=== PATIENT | male | born 1940 | race Asian ===

== ENCOUNTER 2020-05-12 18:42 | Inpatient (IN) | payer MEDICARE, MEDICAID ==
[~2020-05-12] VITALS: Ht 170.2 cm; Wt 62.0 kg
[2020-05-12 20:36] LABS: Basophils # (auto) 0.1 10 ^3/uL (0-0.2); Hemoglobin 13.2 g/dL (13.5-17.5); Mean Corpuscular Hemoglobin 34.9 pg (28.0-32.0); Monocytes # (auto) 0.4 10 ^3/uL (0-1.3); Neutrophils # (auto) 4.1 10 ^3/uL (1.6-8.6); Nucleated Red Blood Cells % 0.1 %; Platelet Count (auto) 202 10^3/uL (140-450); Red Blood Cells 3.77 10^6/uL (4.5-5.90); White Blood Cell 6.9 10^3/uL (4.4-10.8)
[2020-05-12 20:39] LABS: Basophils % (auto) 0.8 % (0.0-2.0); Eosinophils # (auto) 0.2 10 ^3/uL (0-0.8); Eosinophils % (auto) 3.3 % (0.0-7.0); Hematocrit 37.4 % (41.0-53.0); Lymphocytes # (auto) 2.1 10 ^3/uL (0.4-5.4); Lymphocytes % (auto) 30.4 % (10.0-50.0); Mean Corpuscular Hgb Conc. 35.2 g/dL (32.0-36.0); Mean Corpuscular Volume 99.1 fL (80.0-100.0); Neutrophils % (auto) 59.5 % (37.0-80.0); Red Cell Distribution Width 14.9 % (11.8-14.3)
[2020-05-12 20:48] LABS: Albumin 3.8 g/dL (3.4-5.0); Anion Gap 15 (5-15); Blood Urea Nitrogen 29 mg/dL (7-18); Calcium 9.1 mg/dL (8.5-10.1); Carbon Dioxide 21 mmol/L (21-32); Chloride 101 mmol/L (98-107); GFR African American 54 mL/min; GFR Non-African American 44 mL/min; Glucose 104 mg/dL (74-106); Potassium 4.6 mmol/L (3.5-5.1); Sodium 137 mmol/L (136-145)
[2020-05-12 20:53] LABS: Alanine Aminotransferase 22 U/L (16-61); Alkaline Phosphatase 70 U/L (45-117); Aspartate Aminotransferase 22 U/L (15-37); Total Protein 8.2 g/dL (6.4-8.2)
[2020-05-12 21:02] LABS: INR 0.98 (0.9-1.15)
[2020-05-12] MEDS ORDERED: DOXYCYCLINE 100MG/250ML 250 ML IV ONE (23:15)
[2020-05-12] MEDS ORDERED: DexAMETHasone SOD PHOS 10MG/1ML VIAL INJ IV ONE (23:15)
[2020-05-13] MEDS ORDERED: TEMAZEPAM 15 MG CAP PO PRN (00:45)
[2020-05-13] MEDS ORDERED: cloNIDine HCL 0.1 MG TAB PO PRN (00:45)
[2020-05-13] MEDS ORDERED: ONDANSETRON HCL 4 MG/2 ML VIAL IV PRN (00:45)
[2020-05-13] MEDS ORDERED: ACETAMINOPHEN 325 MG TAB PO PRN (00:45)
[2020-05-13 01:58] LABS: Urine Bacteria NONE SEEN /hpf (None Seen); Urine Blood Negative /uL (Negative); Urine Mucus FEW (None Seen); Urine Specific Gravity 1.007 (1.001-1.035); Urine WBC <1 /hpf (0 - 3)
[2020-05-13 02:55] VITALS: BP 159/99
[2020-05-13 03:24] VITALS: BP 159/99
[2020-05-13] MEDS ORDERED: KRIL300C2 PO ×2 (04:08→04:14)
[2020-05-13] MEDS ORDERED: MULTCHW3 OR ×2 (04:08→04:15)
[2020-05-13] MEDS ORDERED: UMEC1AER IN ×3 (04:08→04:13)
[2020-05-13] MEDS ORDERED: RANO500T2 PO (04:08)
[2020-05-13] MEDS ORDERED: [UNRECOGNIZED DRUG - CODE] PO (04:08)
[2020-05-13] MEDS ORDERED: KETO2CRE4 TOP (04:08)
[2020-05-13] MEDS ORDERED: TERA5CAP42 PO (04:08)
[2020-05-13] MEDS ORDERED: ALLO300T2 PO (04:08)
[2020-05-13] MEDS ORDERED: MOME200A INH ×2 (04:08→04:17)
[2020-05-13] MEDS ORDERED: ISO60SRT PO (04:08)
[2020-05-13] MEDS ORDERED: LOSA-69 PO (04:08)
[2020-05-13] MEDS ORDERED: ASPI325T4 PO (04:08)
[2020-05-13] MEDS ORDERED: METO25TA93 PO (04:08)
[2020-05-13] MEDS ORDERED: FLUO0.05 EX (04:08)
[2020-05-13] MEDS ORDERED: OMEG306C OR ×2 (04:08→04:15)
[2020-05-13] MEDS ORDERED: CHOL20007 PO (04:08)
[2020-05-13] MEDS ORDERED: ATOR40TA52 PO (04:08)
[2020-05-13 05:00] VITALS: BP 136/73
[2020-05-13 08:45] VITALS: BP 145/86
[2020-05-13] MEDS ORDERED: PANTOPRAZOLE 40 MG TAB PO SCH (10:00)
[2020-05-13] MEDS ORDERED: amLODIPine BESYLATE 5 MG TAB PO SCH (10:00)
[2020-05-13] MEDS ORDERED: DOXYCYCLINE 100MG/250ML 250 ML IV SCH (10:00)
[2020-05-13 12:46] LABS: Basophils # (auto) 0 10 ^3/uL (0-0.2); Basophils % (auto) 0.5 % (0.0-2.0); Eosinophils # (auto) 0 10 ^3/uL (0-0.8); Eosinophils % (auto) 0.1 % (0.0-7.0); Hemoglobin 12.2 g/dL (13.5-17.5); Lymphocytes # (auto) 1.2 10 ^3/uL (0.4-5.4); Lymphocytes % (auto) 20.9 % (10.0-50.0); Mean Corpuscular Hemoglobin 33.9 pg (28.0-32.0); Mean Corpuscular Hgb Conc. 34.7 g/dL (32.0-36.0); Mean Corpuscular Volume 97.7 fL (80.0-100.0); Monocytes # (auto) 0.1 10 ^3/uL (0-1.3); Monocytes % (auto) 0.9 % (0.0-12.0); Neutrophils # (auto) 4.5 10 ^3/uL (1.6-8.6); Neutrophils % (auto) 77.6 % (37.0-80.0); Nucleated Red Blood Cells % 0.5 %; Platelet Count (auto) 183 10^3/uL (140-450); Red Blood Cells 3.59 10^6/uL (4.5-5.90); Red Cell Distribution Width 14.8 % (11.8-14.3); White Blood Cell 5.8 10^3/uL (4.4-10.8)
[2020-05-13 13:00] VITALS: BP 128/78
[2020-05-13 13:22] LABS: BUN/Creatinine Ratio 19.1; Calcium 9.6 mg/dL (8.5-10.1); Potassium 4.6 mmol/L (3.5-5.1)
[2020-05-13 16:07] LABS: Folate (Folic Acid) > 24.00 ng/mL (5.38-24)
== END 2020-05-13 16:53 | disposition home health service (06) | DRG 640 ==
LOC: ER 18:42 → OVERFLOW 18:43 → EAST 05-13 02:32
PROVIDERS: ADMIT Nurse Practitioner; ATTEND Internal Medicine
DX: E86.0 Dehydration (principal); N17.0 Acute kidney failure with tubular necrosis; I16.1 Hypertensive emergency; Z20.822 Contact with and (suspected) exposure to COVID-19; E04.1 Nontoxic single thyroid nodule; E11.22 Type 2 diabetes mellitus with diabetic chronic kidney disease; I12.9 Hypertensive chronic kidney disease with stage 1 through stage 4 chronic kidney disease, or unspecified chronic kidney disease; K52.9 Noninfective gastroenteritis and colitis, unspecified; K57.30 Diverticulosis of large intestine without perforation or abscess without bleeding; N18.31 Chronic kidney disease, stage 3a; N28.1 Cyst of kidney, acquired; M19.90 Unspecified osteoarthritis, unspecified site; R79.89 Other specified abnormal findings of blood chemistry; Z86.73 Personal history of transient ischemic attack (TIA), and cerebral infarction without residual deficits
CPT/HCPCS: 36415; 70450; 71045; 72125; 74176; 76705; 80048; 80053; 81001; 82010; 82607; 82728; 82746; 82962; 83605; 83880; 84443; 84484; 85025; 85379; 85610; 85730; 87040; 87426; 93005; 93970; 96365; 96375; G0378; J1100; J3490

== ENCOUNTER 2020-07-07 05:19 | Inpatient (IN) | payer MEDICARE, MEDICAID ==
[~2020-07-07] VITALS: Ht 170.2 cm; Wt 62.4 kg
[~2020-07-07 05:19] MED LIST: ALLO300T2 PO; ASPI325T4 PO; ATOR40TA52 PO; CHOL20007 PO; FLUO0.05 EX; ISO60SRT PO; KETO2CRE4 TOP; KRIL300C2 PO; LOSA-69 PO; METO25TA93 PO; MOME200A INH; MULTCHW3 OR; OMEG306C OR; RANO500T2 PO; TERA5CAP42 PO; UMEC1AER IN; [UNRECOGNIZED DRUG - CODE] PO
[2020-07-07 06:41] LABS: Basophils # (auto) 0 10 ^3/uL (0-0.2); Eosinophils # (auto) 0 10 ^3/uL (0-0.8); Hemoglobin 11.4 g/dL (13.5-17.5); Lymphocytes # (auto) 0.5 10 ^3/uL (0.4-5.4); Mean Corpuscular Volume 98.8 fL (80.0-100.0); Monocytes # (auto) 0.4 10 ^3/uL (0-1.3)
[2020-07-07 06:43] LABS: Basophils % (auto) 0.2 % (0.0-2.0); Hematocrit 32.8 % (41.0-53.0); Lymphocytes % (auto) 6.1 % (10.0-50.0); Mean Corpuscular Hemoglobin 34.3 pg (28.0-32.0); Mean Corpuscular Hgb Conc. 34.7 g/dL (32.0-36.0); Monocytes % (auto) 5.4 % (0.0-12.0); Neutrophils # (auto) 6.6 10 ^3/uL (1.6-8.6); Neutrophils % (auto) 88.3 % (37.0-80.0); Nucleated Red Blood Cells % 0.1 %; Red Blood Cells 3.32 10^6/uL (4.5-5.90); Red Cell Distribution Width 14.9 % (11.8-14.3); White Blood Cell 7.5 10^3/uL (4.4-10.8)
[2020-07-07] MEDS ORDERED: SODIUM CHLORIDE 0.9% 1,000 ML IV ONE (07:00)
[2020-07-07 07:06] LABS: Albumin 3.2 g/dL (3.4-5.0); Anion Gap 9 (5-15); Blood Urea Nitrogen 21 mg/dL (7-18); Calcium 9.5 mg/dL (8.5-10.1); Carbon Dioxide 22 mmol/L (21-32); Chloride 106 mmol/L (98-107); Glucose 125 mg/dL (74-106); Magnesium 1.7 mg/dL (1.6-2.6); Potassium 3.9 mmol/L (3.5-5.1); Sodium 137 mmol/L (136-145)
[2020-07-07 07:13] LABS: Alanine Aminotransferase 23 U/L (16-61); Alkaline Phosphatase 78 U/L (45-117); Aspartate Aminotransferase 23 U/L (15-37); BUN/Creatinine Ratio 16.9; Bilirubin, Total 0.9 mg/dL (0.2-1.0); GFR African American 73 mL/min; GFR Non-African American 60 mL/min; Total Protein 6.7 g/dL (6.4-8.2)
[2020-07-07] MEDS ORDERED: FUROSEMIDE 20 MG/2 ML VIAL IV ONE (07:45)
[2020-07-07 09:57] LABS: Urine Bacteria NONE SEEN /hpf (None Seen); Urine Blood Negative /uL (Negative); Urine Specific Gravity 1.006 (1.001-1.035); Urine WBC <1 /hpf (0 - 3)
[2020-07-07] MEDS ORDERED: ACETAMINOPHEN 500 MG TAB PO PRN (10:00)
[2020-07-07] MEDS ORDERED: PATIENTS OWN MEDICATION (Atorvastatin Calcium 1 TAB) PO SCH (10:00)
[2020-07-07] MEDS ORDERED: MORPHINE SULFATE INJECTION 2 MG/ML SYRG IV PRN (10:00)
[2020-07-07] MEDS ORDERED: NITROGLYCERIN 0.4 MG SL TAB SL PRN (10:00)
[2020-07-07] MEDS ORDERED: ONDANSETRON HCL 4 MG/2 ML VIAL IV PRN (10:00)
[2020-07-07] MEDS ORDERED: ALLOPURINOL 300 MG TAB PO SCH (10:00)
[2020-07-07] MEDS ORDERED: PATIENTS OWN MEDICATION (Metoprolol Succinate (Metoprolol Succinate Er) 1 TAB) PO SCH (10:00)
[2020-07-07] MEDS: LOSARTAN POTASSIUM 50 MG TAB PO SCH (10:20)
[2020-07-07] MEDS: ISOSORBIDE MONONITRATE ER 60 MG TAB PO SCH (10:21)
[2020-07-07] MEDS: FAMOTIDINE 20 MG TAB PO SCH (10:21)
[2020-07-07] MEDS: RANOLAZINE ER 500 MG TAB PO SCH (10:21)
[2020-07-07] MEDS: METOPROLOL SUCCINATE XL 50 MG TAB PO SCH (10:22)
[2020-07-07 17:00] VITALS: BP 133/80
[2020-07-07 20:00] VITALS: BP 102/60
[2020-07-07 22:00] VITALS: BP 94/56
[2020-07-07] MEDS: TERAZOSIN HCL 5 MG CAP PO SCH (22:00)
[2020-07-07] MEDS: ATORVASTATIN 20 MG TAB PO SCH (22:00)
[2020-07-08 05:00] VITALS: BP 95/64
[2020-07-08 08:30] VITALS: BP 134/72
[2020-07-08] MEDS: FAMOTIDINE 20 MG TAB PO SCH (10:19)
[2020-07-08] MEDS: ISOSORBIDE MONONITRATE ER 60 MG TAB PO SCH (10:19)
[2020-07-08] MEDS: LOSARTAN POTASSIUM 50 MG TAB PO SCH (10:19)
[2020-07-08] MEDS: RANOLAZINE ER 500 MG TAB PO SCH (10:19)
[2020-07-08] MEDS: ALLOPURINOL 100 MG TAB PO SCH (10:20)
[2020-07-08] MEDS: METOPROLOL SUCCINATE XL 50 MG TAB PO SCH (10:20)
[2020-07-08 13:00] VITALS: BP 100/58
[2020-07-08] MEDS: HYDROcodone-ACET 5/325MG TAB PO PRN ×2 (15:01→21:30)
[2020-07-08 17:00] VITALS: BP 95/50
[2020-07-08 20:00] VITALS: BP 108/51
[2020-07-08 22:00] VITALS: BP 92/59
[2020-07-08] MEDS: TERAZOSIN HCL 5 MG CAP PO SCH (22:00)
[2020-07-08] MEDS: ATORVASTATIN 20 MG TAB PO SCH (22:00)
[2020-07-09 05:00] VITALS: BP 95/56
[2020-07-09 07:06] LABS: Cholesterol 162 mg/dL (< 200); HDL Cholesterol 45 mg/dL (40-59); LDL Cholesterol 96 mg/dL (< 100); Triglycerides 178 mg/dL (< 150)
[2020-07-09 07:10] LABS: Folate (Folic Acid) 20.97 ng/mL (5.38-24)
[2020-07-09] MEDS ORDERED: ADENOSINE 53 MG in GIVE UN-DILUTED 0 ML IV STA (08:21)
[2020-07-09 09:00] VITALS: BP 115/70
[2020-07-09] MEDS ORDERED: SODIUM CHLORIDE 0.9% 1,000 ML IV SCH (09:30)
[2020-07-09] MEDS: METOPROLOL SUCCINATE XL 50 MG TAB PO SCH (10:00)
[2020-07-09 10:37] LABS: Calcium 8.7 mg/dL (8.5-10.1); Potassium 3.1 mmol/L (3.5-5.1)
[2020-07-09 10:40] LABS: BUN/Creatinine Ratio 21.4
[2020-07-09 10:46] LABS: Basophils # (auto) 0 10 ^3/uL (0-0.2); Eosinophils # (auto) 0.3 10 ^3/uL (0-0.8); Eosinophils % (auto) 6.2 % (0.0-7.0); Hematocrit 28.9 % (41.0-53.0); Hemoglobin 10.5 g/dL (13.5-17.5); Lymphocytes # (auto) 1.6 10 ^3/uL (0.4-5.4); Lymphocytes % (auto) 33.3 % (10.0-50.0); Mean Corpuscular Hemoglobin 35.1 pg (28.0-32.0); Mean Corpuscular Hgb Conc. 36.1 g/dL (32.0-36.0); Mean Corpuscular Volume 97.1 fL (80.0-100.0); Monocytes # (auto) 0.6 10 ^3/uL (0-1.3); Monocytes % (auto) 13.2 % (0.0-12.0); Neutrophils # (auto) 2.2 10 ^3/uL (1.6-8.6); Neutrophils % (auto) 46.3 % (37.0-80.0); Nucleated Red Blood Cells % 0.2 %; Red Blood Cells 2.98 10^6/uL (4.5-5.90); Red Cell Distribution Width 14.3 % (11.8-14.3); White Blood Cell 4.7 10^3/uL (4.4-10.8)
[2020-07-09] MEDS: ALLOPURINOL 100 MG TAB PO SCH (11:08)
[2020-07-09] MEDS: FAMOTIDINE 20 MG TAB PO SCH (11:09)
[2020-07-09] MEDS: RANOLAZINE ER 500 MG TAB PO SCH (11:16)
[2020-07-09] MEDS: SODIUM CHLORIDE 0.9% 1,000 ML IV SCH ×2 (11:36→23:05)
[2020-07-09] MEDS ORDERED: cefTRIAXone 1GM/50ML D5W 50 ML IV ONE (12:30)
[2020-07-09] MEDS ORDERED: POTASSIUM EFFERVESENT TAB 25 MEQ PO ONE (12:30)
[2020-07-09 12:55] VITALS: BP_SYST 77; BP_SYST 82; BP_DIAS 48
[2020-07-09 13:07] VITALS: BP 93/60
[2020-07-09] MEDS ORDERED: DEXTROSE (50%) 50ML SYRG IV PRN (13:15)
[2020-07-09] MEDS: InsuLIN REG 1unit/0.01ml Soln (100units/ml) SC SCH ×2 (17:00→23:04)
[2020-07-09] MEDS: ACCU-CHEK COMFORT CURVE STRIP VI SCH ×2 (17:56→23:02)
[2020-07-09 22:00] VITALS: BP 140/81
[2020-07-09] MEDS: ATORVASTATIN 20 MG TAB PO SCH (23:02)
[2020-07-09] MEDS: TERAZOSIN HCL 5 MG CAP PO SCH (23:02)
[2020-07-10 05:00] VITALS: BP 144/83
[2020-07-10 06:01] LABS: Potassium 3.8 mmol/L (3.5-5.1)
[2020-07-10] MEDS: ACCU-CHEK COMFORT CURVE STRIP VI SCH ×4 (06:05→22:00)
[2020-07-10] MEDS: InsuLIN REG 1unit/0.01ml Soln (100units/ml) SC SCH ×4 (06:06→22:36)
[2020-07-10 06:07] LABS: BUN/Creatinine Ratio 15.8; Calcium 8.5 mg/dL (8.5-10.1)
[2020-07-10 08:37] VITALS: BP 121/70
[2020-07-10] MEDS: ASPirin-EC 81 mg tab PO SCH ×2 (10:00→11:32)
[2020-07-10] MEDS: cefTRIAXone 1GM/50ML D5W 50 ML IV SCH (11:31)
[2020-07-10] MEDS: FAMOTIDINE 20 MG TAB PO SCH (11:32)
[2020-07-10] MEDS: METOPROLOL SUCCINATE XL 50 MG TAB PO SCH (11:32)
[2020-07-10 13:00] VITALS: BP 146/81
[2020-07-10 17:00] VITALS: BP 147/82
[2020-07-10 22:00] VITALS: BP 145/85
[2020-07-10] MEDS ORDERED: TEMAZEPAM 15 MG CAP PO PRN (22:00)
[2020-07-10] MEDS: TERAZOSIN HCL 5 MG CAP PO SCH (22:36)
[2020-07-10] MEDS: traZODone HCL 50 MG TAB PO PRN (22:37)
[2020-07-10] MEDS: ATORVASTATIN 20 MG TAB PO SCH (22:37)
[2020-07-11 05:16] VITALS: BP 141/72
[2020-07-11] MEDS: InsuLIN REG 1unit/0.01ml Soln (100units/ml) SC SCH ×4 (07:00→22:00)
[2020-07-11] MEDS: ACCU-CHEK COMFORT CURVE STRIP VI SCH ×4 (07:16→22:11)
[2020-07-11 09:00] VITALS: BP 145/73
[2020-07-11] MEDS: cefTRIAXone 1GM/50ML D5W 50 ML IV SCH (10:10)
[2020-07-11] MEDS: ASPirin-EC 81 mg tab PO SCH (10:11)
[2020-07-11] MEDS: FAMOTIDINE 20 MG TAB PO SCH (10:11)
[2020-07-11] MEDS: METOPROLOL SUCCINATE XL 50 MG TAB PO SCH (10:12)
[2020-07-11 13:00] VITALS: BP 127/74
[2020-07-11 16:45] VITALS: BP 142/74
[2020-07-11] MEDS: HYDROcodone-ACET 5/325MG TAB PO PRN (19:25)
[2020-07-11] MEDS: ATORVASTATIN 20 MG TAB PO SCH (21:58)
[2020-07-11] MEDS: TERAZOSIN HCL 5 MG CAP PO SCH (21:58)
[2020-07-11] MEDS: traZODone HCL 50 MG TAB PO PRN (21:59)
[2020-07-11 22:00] VITALS: BP 136/71
[2020-07-12 05:00] VITALS: BP 116/58
[2020-07-12] MEDS: InsuLIN REG 1unit/0.01ml Soln (100units/ml) SC SCH ×4 (06:00→22:04)
[2020-07-12] MEDS: ACCU-CHEK COMFORT CURVE STRIP VI SCH ×4 (06:00→21:25)
[2020-07-12] MEDS: cefTRIAXone 1GM/50ML D5W 50 ML IV SCH (08:56)
[2020-07-12 09:00] VITALS: BP 119/71
[2020-07-12] MEDS: ASPirin-EC 81 mg tab PO SCH (09:02)
[2020-07-12] MEDS: FAMOTIDINE 20 MG TAB PO SCH (09:02)
[2020-07-12] MEDS: METOPROLOL SUCCINATE XL 50 MG TAB PO SCH (09:03)
[2020-07-12 13:00] VITALS: BP 152/79
[2020-07-12 17:00] VITALS: BP 136/72
[2020-07-12] MEDS: TERAZOSIN HCL 5 MG CAP PO SCH (21:25)
[2020-07-12] MEDS: ATORVASTATIN 20 MG TAB PO SCH (21:25)
[2020-07-12 22:11] VITALS: BP 138/64
[2020-07-13 04:52] VITALS: BP 149/70
[2020-07-13 06:00] LABS: Basophils # (auto) 0.1 10 ^3/uL (0-0.2); Eosinophils # (auto) 0.3 10 ^3/uL (0-0.8); Hemoglobin 10.8 g/dL (13.5-17.5); Lymphocytes # (auto) 2.5 10 ^3/uL (0.4-5.4); Mean Corpuscular Hemoglobin 34.9 pg (28.0-32.0); Monocytes # (auto) 0.6 10 ^3/uL (0-1.3); Neutrophils # (auto) 3.6 10 ^3/uL (1.6-8.6); Nucleated Red Blood Cells % 0.1 %
[2020-07-13 06:03] LABS: Eosinophils % (auto) 4.2 % (0.0-7.0); Lymphocytes % (auto) 35.9 % (10.0-50.0); Mean Corpuscular Hgb Conc. 36.1 g/dL (32.0-36.0); Mean Corpuscular Volume 96.6 fL (80.0-100.0); Monocytes % (auto) 8.5 % (0.0-12.0); Neutrophils % (auto) 50.4 % (37.0-80.0); Red Blood Cells 3.11 10^6/uL (4.5-5.90); Red Cell Distribution Width 14.1 % (11.8-14.3)
[2020-07-13 06:16] LABS: Potassium 3.8 mmol/L (3.5-5.1)
[2020-07-13 06:19] LABS: INR 1.03 (0.9-1.15); Partial Thromboplastin Time 29.3 sec (23.0-31.2)
[2020-07-13 06:23] LABS: Calcium 8.3 mg/dL (8.5-10.1)
[2020-07-13] MEDS: ACCU-CHEK COMFORT CURVE STRIP VI SCH ×4 (06:31→22:00)
[2020-07-13] MEDS: InsuLIN REG 1unit/0.01ml Soln (100units/ml) SC SCH ×4 (06:31→22:00)
[2020-07-13 09:00] VITALS: BP 133/73
[2020-07-13] MEDS: FAMOTIDINE 20 MG TAB PO SCH (10:00)
[2020-07-13] MEDS: ASPirin-EC 81 mg tab PO SCH (10:20)
[2020-07-13] MEDS: METOPROLOL SUCCINATE XL 50 MG TAB PO SCH (10:20)
[2020-07-13] MEDS ORDERED: MIDAZOLAM HCL 2MG/2ML 2ml VIAL (1mg/ml) IV ONE (12:30)
[2020-07-13] MEDS ORDERED: diphenhdrAMINE HCL 50 MG/1 ML VL IV ONE (12:30)
[2020-07-13] MEDS ORDERED: fentaNYL CITRATE 100 MCG/2 ML VL IV ONE (12:30)
[2020-07-13 12:44] VITALS: BP 127/68
[2020-07-13 17:00] VITALS: BP 134/78
[2020-07-13 20:00] VITALS: BP 133/73
[2020-07-13 22:00] VITALS: BP 120/64
[2020-07-13] MEDS: ATORVASTATIN 20 MG TAB PO SCH (23:48)
[2020-07-13] MEDS: TERAZOSIN HCL 5 MG CAP PO SCH (23:48)
[2020-07-14] MEDS: traZODone HCL 50 MG TAB PO PRN (00:23)
[2020-07-14 05:00] VITALS: BP 131/66
[2020-07-14] MEDS: ACCU-CHEK COMFORT CURVE STRIP VI SCH ×2 (06:22→11:57)
[2020-07-14] MEDS: InsuLIN REG 1unit/0.01ml Soln (100units/ml) SC SCH ×2 (06:23→11:58)
[2020-07-14 07:24] LABS: Hematocrit 30.2 % (41.0-53.0)
[2020-07-14 07:26] LABS: Hemoglobin 10.6 g/dL (13.5-17.5)
[2020-07-14 08:42] VITALS: BP 138/72
[2020-07-14] MEDS: ASPirin-EC 81 mg tab PO SCH (10:23)
[2020-07-14] MEDS: FAMOTIDINE 20 MG TAB PO SCH (10:23)
[2020-07-14] MEDS: METOPROLOL SUCCINATE XL 50 MG TAB PO SCH (10:24)
[2020-07-14] MEDS ORDERED: ISOS1TAB28 PO (11:48)
[2020-07-14 12:39] VITALS: BP 110/70
== END 2020-07-14 14:25 | disposition home health service (06) | DRG 312 ==
LOC: ER 05:19 → EDBD 05:19 → OVERFLOW 09:56 → EAST 16:37 → TELE-EAST 07-08 07:04
PROVIDERS: ADMIT Nurse Practitioner Acute Care; ATTEND Internal Medicine
PROC: 4A02XM4 Measurement of Cardiac Total Activity, External Approach (ICD-10-PCS; 2020-07-10)
PROC: B24BZZ4 Ultrasonography of Heart with Aorta, Transesophageal (ICD-10-PCS; principal; 2020-07-13)
DX: I95.2 Hypotension due to drugs (principal); E16.2 Hypoglycemia, unspecified; I25.10 Atherosclerotic heart disease of native coronary artery without angina pectoris; I10 Essential (primary) hypertension; D64.9 Anemia, unspecified; E78.5 Hyperlipidemia, unspecified; Z20.822 Contact with and (suspected) exposure to COVID-19; E86.0 Dehydration; F17.200 Nicotine dependence, unspecified, uncomplicated; F51.04 Psychophysiologic insomnia; R32 Unspecified urinary incontinence; G30.9 Alzheimer's disease, unspecified; F02.80 Dementia in other diseases classified elsewhere, unspecified severity, without behavioral disturbance, psychotic disturbance, mood disturbance, and anxiety; N40.0 Benign prostatic hyperplasia without lower urinary tract symptoms; E11.9 Type 2 diabetes mellitus without complications; J44.9 Chronic obstructive pulmonary disease, unspecified; Z90.49 Acquired absence of other specified parts of digestive tract; Z79.899 Other long term (current) drug therapy; Z86.73 Personal history of transient ischemic attack (TIA), and cerebral infarction without residual deficits; Z95.5 Presence of coronary angioplasty implant and graft
CPT/HCPCS: 36415; 70450; 70551; 71045; 78452; 80048; 80053; 80061; 81001; 82306; 82607; 82746; 82962; 83036; 83735; 83880; 84439; 84443; 84484; 84550; 85014; 85018; 85025; 85610; 85730; 86850; 86900; 86901; 87040; 87081; 87086; 87426; 93005; 93017; 93306; 93886; 95819; 96361; 96374; 97110; 97116; 97530; 99152; G0378; J0153; J0696; J1815; J2250

== ENCOUNTER → 2020-10-01 | Outpatient (CLI) | payer MEDICARE, MEDICAID ==
[~2020-10-01] MED LIST changes: -ISO60SRT PO; +ISOS1TAB28 PO; -LOSA-69 PO; -[UNRECOGNIZED DRUG - CODE] PO
[2020-10-01 11:02] LABS: Urine Bacteria NONE SEEN /hpf (None Seen); Urine Blood Negative /uL (Negative); Urine Specific Gravity 1.017 (1.001-1.035); Urine WBC <1 /hpf (0 - 3)
[2020-10-01 11:17] LABS: BUN/Creatinine Ratio 19.1; Calcium 8.6 mg/dL (8.5-10.1); Potassium 4.5 mmol/L (3.5-5.1)
== END | disposition home or self-care (01) ==
LOC: LAB 10:38
PROVIDERS: ATTEND Urology
DX: N40.0 Benign prostatic hyperplasia without lower urinary tract symptoms (principal); N35.919 Unspecified urethral stricture, male, unspecified site
CPT/HCPCS: 36415; 80048; 81001; 84153; 87086

== ENCOUNTER → 2021-08-05 | Outpatient (CLI) | payer OTHER, MEDICAID ==
[2021-08-05 15:35] LABS: Urine Bacteria NONE SEEN /hpf (None Seen); Urine Blood Negative /uL (Negative); Urine Mucus FEW (None Seen); Urine Specific Gravity 1.018 (1.001-1.035); Urine WBC <1 /hpf (0 - 3)
== END | disposition home or self-care (01) ==
LOC: LAB 15:10
PROVIDERS: ATTEND Urology
DX: N39.0 Urinary tract infection, site not specified (principal)
CPT/HCPCS: 81001; 87086

== ENCOUNTER → 2021-08-26 | Day surgery (SDC) | payer MEDICARE, MEDICAID ==
[2021-08-24 14:10] LABS: Basophils # (auto) 0 10 ^3/uL (0-0.2); Basophils % (auto) 0.8 % (0.0-2.0); Eosinophils # (auto) 0.1 10 ^3/uL (0-0.8); Eosinophils % (auto) 1.9 % (0.0-7.0); Hematocrit 31.4 % (41.0-53.0); Hemoglobin 10.5 g/dL (13.5-17.5); Lymphocytes # (auto) 1.7 10 ^3/uL (0.4-5.4); Lymphocytes % (auto) 34.8 % (10.0-50.0); Mean Corpuscular Hemoglobin 32.8 pg (28.0-32.0); Mean Corpuscular Hgb Conc. 33.5 g/dL (32.0-36.0); Mean Corpuscular Volume 97.9 fL (80.0-100.0); Monocytes # (auto) 0.4 10 ^3/uL (0-1.3); Monocytes % (auto) 7.3 % (0.0-12.0); Neutrophils # (auto) 2.7 10 ^3/uL (1.6-8.6); Neutrophils % (auto) 55.2 % (37.0-80.0); Nucleated Red Blood Cells % 0.1 %; Red Blood Cells 3.21 10^6/uL (4.5-5.90); Red Cell Distribution Width 15.2 % (11.8-14.3); White Blood Cell 4.9 10^3/uL (4.4-10.8)
[2021-08-24 14:22] LABS: INR 1.04 (0.9-1.15); Partial Thromboplastin Time 27.3 sec (23.6-33.0)
[2021-08-24 15:25] LABS: Albumin 3.2 g/dL (3.4-5.0); Calcium 8.6 mg/dL (8.5-10.1); Potassium 3.9 mmol/L (3.5-5.1)
[2021-08-24 15:31] LABS: BUN/Creatinine Ratio 15.2; Bilirubin, Total 0.9 mg/dL (0.2-1.0); Total Protein 6.9 g/dL (6.4-8.2)
[~2021-08-26] VITALS: Ht 170.2 cm; Wt 63.5 kg
[~2021-08-26] MED LIST changes: +DONE1TAB88 PO; +LOSA-69 PO; +METF-372 PO; +diphenhdrAMINE HCL 50 MG/1 ML VL ONE
[2021-08-26] MEDS: fentaNYL CITRATE 100 MCG/2 ML VL ONE ×2 (09:44→09:48)
[2021-08-26] MEDS: MIDAZOLAM HCL 5 MG/ML-1ML VIAL ONE ×2 (09:44→09:48)
[2021-08-26 10:20] VITALS: BP 160/82
== END | disposition home or self-care (01) ==
LOC: GI 08:28
PROVIDERS: ATTEND Internal Medicine Gastroenterology
DX: R19.7 Diarrhea, unspecified (principal); K57.30 Diverticulosis of large intestine without perforation or abscess without bleeding; K64.8 Other hemorrhoids; K63.89 Other specified diseases of intestine; I10 Essential (primary) hypertension; E11.9 Type 2 diabetes mellitus without complications; E11.40 Type 2 diabetes mellitus with diabetic neuropathy, unspecified; G47.00 Insomnia, unspecified; M10.9 Gout, unspecified; I20.9 Angina pectoris, unspecified; J44.9 Chronic obstructive pulmonary disease, unspecified; Z98.890 Other specified postprocedural states; Z79.899 Other long term (current) drug therapy; Z95.5 Presence of coronary angioplasty implant and graft; Z20.822 Contact with and (suspected) exposure to COVID-19
CPT/HCPCS: 36415; 45380; 80053; 85025; 85610; 85730; 88305; J1200; J2250; J3010; J7030; U0003; G0500

== ENCOUNTER 2021-09-30 06:08 | Observation (INO) | payer MEDICARE, MEDICAID ==
[2021-09-28 12:30] LABS: Basophils # (auto) 0.1 10 ^3/uL (0-0.2); Basophils % (auto) 1.1 % (0.0-2.0); Eosinophils # (auto) 0.2 10 ^3/uL (0-0.8); Eosinophils % (auto) 3.2 % (0.0-7.0); Hematocrit 34.2 % (41.0-53.0); Hemoglobin 11.3 g/dL (13.5-17.5); Lymphocytes # (auto) 2.4 10 ^3/uL (0.4-5.4); Lymphocytes % (auto) 36.5 % (10.0-50.0); Mean Corpuscular Hemoglobin 32.5 pg (28.0-32.0); Mean Corpuscular Hgb Conc. 33.1 g/dL (32.0-36.0); Mean Corpuscular Volume 98.2 fL (80.0-100.0); Monocytes # (auto) 0.5 10 ^3/uL (0-1.3); Monocytes % (auto) 7.2 % (0.0-12.0); Neutrophils # (auto) 3.4 10 ^3/uL (1.6-8.6); Red Blood Cells 3.48 10^6/uL (4.5-5.90); Red Cell Distribution Width 15.3 % (11.8-14.3); White Blood Cell 6.6 10^3/uL (4.4-10.8)
[2021-09-28 12:39] LABS: Urine Bacteria NONE SEEN /hpf (None Seen); Urine Blood Negative /uL (Negative); Urine Specific Gravity 1.021 (1.001-1.035); Urine WBC <1 /hpf (0 - 3)
[2021-09-28 12:42] LABS: INR 0.97 (0.9-1.15)
[2021-09-28 12:55] LABS: Albumin 3.5 g/dL (3.4-5.0); Calcium 9.4 mg/dL (8.5-10.1)
[2021-09-28 12:59] LABS: BUN/Creatinine Ratio 18.8
[~2021-09-30] VITALS: Ht 170.2 cm; Wt 60.0 kg
[~2021-09-30 06:08] MED LIST changes: -diphenhdrAMINE HCL 50 MG/1 ML VL ONE
[2021-09-30] MEDS ORDERED: IOHEXOL 300 MG/ML 100ML BOTTLE IJ ONE (06:29)
[2021-09-30] MEDS ORDERED: SUCCINYLCHOLINE CHLORIDE 20 MG/ML 10ML VIAL IV ONE (06:55)
[2021-09-30] MEDS ORDERED: BUPIVACAINE 0.5% P/F INJ 10 ML VIAL ONE (06:55)
[2021-09-30] MEDS ORDERED: DexAMETHasone SOD PHOS 10MG/1ML VIAL INJ ONE (07:00)
[2021-09-30] MEDS ORDERED: ONDANSETRON HCL 4 MG/2 ML VIAL ONE (07:00)
[2021-09-30] MEDS ORDERED: PROPOFOL 10 MG/ML 20 ML IV ONE (07:00)
[2021-09-30] MEDS ORDERED: SODIUM CHLORIDE LOCK 10 ML ONE (07:00)
[2021-09-30] MEDS ORDERED: fentaNYL CITRATE 100 MCG/2 ML VL ONE (07:00)
[2021-09-30] MEDS ORDERED: MIDAZOLAM HCL 2MG/2ML 2ml VIAL (1mg/ml) ONE (07:00)
[2021-09-30] MEDS ORDERED: MORPHINE SULFATE 4 MG/ML SYR/VIAL IV PRN (07:15)
[2021-09-30] MEDS ORDERED: HYDROmorphone HCL 2 MG/ML VL/or syr IV PRN (07:15)
[2021-09-30] MEDS ORDERED: ACCU-CHEK COMFORT CURVE STRIP VI ONE (07:15)
[2021-09-30] MEDS ORDERED: CIPROFLOXACIN 400MG/200ML 200 ML IV ONE (07:38)
[2021-09-30] MEDS ORDERED: MORPHINE SULFATE INJ 2 MG/ml SYRG IV PRN (09:00)
[2021-09-30 17:00] VITALS: BP 133/74
[2021-09-30 22:00] VITALS: BP 116/74
[2021-10-01 05:00] VITALS: BP 146/77
[2021-10-01 08:50] VITALS: BP 148/86
[2021-10-01 12:32] VITALS: BP 128/67
[2021-10-01] MEDS ORDERED: MULTCHW3 OR (14:08)
[2021-10-01 16:21] VITALS: BP 142/77
== END 2021-10-01 18:36 | disposition home or self-care (01) ==
LOC: SUR 06:08 → OVERFLOW 08:58 → WEST WING 15:00
PROVIDERS: ADMIT Urology; ATTEND Internal Medicine
DX: N40.0 Benign prostatic hyperplasia without lower urinary tract symptoms (principal); Z20.822 Contact with and (suspected) exposure to COVID-19; I10 Essential (primary) hypertension; E11.9 Type 2 diabetes mellitus without complications; I25.10 Atherosclerotic heart disease of native coronary artery without angina pectoris; E78.5 Hyperlipidemia, unspecified; D49.4 Neoplasm of unspecified behavior of bladder; Z79.899 Other long term (current) drug therapy; Z98.890 Other specified postprocedural states
CPT/HCPCS: 36415; 52500; 80053; 81001; 82962; 85025; 85610; 85730; 88305; G0378; J0330; J0744; J1100; J2250; J2405; J2704; J3010; J3490; U0003

== ENCOUNTER 2021-10-14 09:41 | Day surgery (SDC) | payer MEDICARE, MEDICAID ==
[2021-10-12 11:39] LABS: Basophils # (auto) 0 10 ^3/uL (0-0.2); Basophils % (auto) 0.6 % (0.0-2.0); Eosinophils # (auto) 0.3 10 ^3/uL (0-0.8); Eosinophils % (auto) 3.8 % (0.0-7.0); Lymphocytes # (auto) 2.1 10 ^3/uL (0.4-5.4); Lymphocytes % (auto) 27.2 % (10.0-50.0); Mean Corpuscular Hemoglobin 33.3 pg (28.0-32.0); Mean Corpuscular Hgb Conc. 33.4 g/dL (32.0-36.0); Mean Corpuscular Volume 99.6 fL (80.0-100.0); Monocytes # (auto) 0.5 10 ^3/uL (0-1.3); Monocytes % (auto) 5.9 % (0.0-12.0); Neutrophils # (auto) 4.9 10 ^3/uL (1.6-8.6); Neutrophils % (auto) 62.5 % (37.0-80.0); Red Blood Cells 3.31 10^6/uL (4.5-5.90); Red Cell Distribution Width 14.3 % (11.8-14.3); White Blood Cell 7.8 10^3/uL (4.4-10.8)
[2021-10-12 12:02] LABS: INR 0.97 (0.9-1.15); Partial Thromboplastin Time 26.8 sec (24.6-33.4)
[2021-10-12 12:10] LABS: Albumin 3.3 g/dL (3.4-5.0); Potassium 4.3 mmol/L (3.5-5.1)
[2021-10-12 12:17] LABS: BUN/Creatinine Ratio 15.7; Bilirubin, Total 0.9 mg/dL (0.2-1.0); Total Protein 6.8 g/dL (6.4-8.2)
[~2021-10-14] VITALS: Ht 170.2 cm; Wt 64.4 kg
[2021-10-14] MEDS ORDERED: LIDOCAINE VISCOUS 2% 15ML UD ONE (10:18)
[2021-10-14] MEDS ORDERED: SODIUM CHLORIDE LOCK 10 ML ONE (10:18)
[2021-10-14] MEDS ORDERED: diphenhdrAMINE HCL 50 MG/1 ML VL ONE (10:19)
[2021-10-14] MEDS: MIDAZOLAM HCL 5 MG/ML-1ML VIAL ONE ×2 (10:23→10:26)
[2021-10-14] MEDS: fentaNYL CITRATE 100 MCG/2 ML VL ONE ×2 (10:23→10:26)
[2021-10-14 11:20] VITALS: BP 129/69
== END 2021-10-14 12:04 | disposition home or self-care (01) ==
LOC: GI 09:41
PROVIDERS: ATTEND Internal Medicine Gastroenterology
DX: R63.0 Anorexia (principal); K29.50 Unspecified chronic gastritis without bleeding; I11.0 Hypertensive heart disease with heart failure; I50.9 Heart failure, unspecified; I25.10 Atherosclerotic heart disease of native coronary artery without angina pectoris; J44.9 Chronic obstructive pulmonary disease, unspecified; E78.5 Hyperlipidemia, unspecified; E11.9 Type 2 diabetes mellitus without complications; M10.9 Gout, unspecified; Z95.5 Presence of coronary angioplasty implant and graft; Z90.49 Acquired absence of other specified parts of digestive tract; Z20.822 Contact with and (suspected) exposure to COVID-19
CPT/HCPCS: 36415; 43239; 80053; 82962; 85025; 85610; 85730; 88305; 88342; J1200; J2250; J3010; J7030; U0003

== ENCOUNTER → 2021-10-18 | Outpatient (CLI) | payer MEDICARE, MEDICAID ==
[2021-10-18 13:05] LABS: Basophils # (auto) 0.1 10 ^3/uL (0-0.2); Basophils % (auto) 1.1 % (0.0-2.0); Eosinophils # (auto) 0.2 10 ^3/uL (0-0.8); Hematocrit 31.8 % (41.0-53.0); Hemoglobin 10.8 g/dL (13.5-17.5); Lymphocytes # (auto) 1.9 10 ^3/uL (0.4-5.4); Mean Corpuscular Hemoglobin 32.7 pg (28.0-32.0); Mean Corpuscular Hgb Conc. 33.8 g/dL (32.0-36.0); Mean Corpuscular Volume 96.8 fL (80.0-100.0); Monocytes # (auto) 0.3 10 ^3/uL (0-1.3); Monocytes % (auto) 6.3 % (0.0-12.0); Neutrophils # (auto) 2.4 10 ^3/uL (1.6-8.6); Neutrophils % (auto) 49.6 % (37.0-80.0); Nucleated Red Blood Cells % 0.1 %; Red Blood Cells 3.29 10^6/uL (4.5-5.90); Red Cell Distribution Width 14.6 % (11.8-14.3); White Blood Cell 4.9 10^3/uL (4.4-10.8)
[2021-10-18 13:23] LABS: % Iron Saturation 26.3 % (20-55)
[2021-10-18 13:30] LABS: Folate (Folic Acid) > 24.00 ng/mL (5.38-24)
== END | disposition home or self-care (01) ==
LOC: LAB 12:32
PROVIDERS: ATTEND Internal Medicine
DX: E11.9 Type 2 diabetes mellitus without complications (principal); D64.9 Anemia, unspecified
CPT/HCPCS: 36415; 82607; 82746; 83036; 83540; 83550; 83615; 85025

== ENCOUNTER → 2021-11-18 | Outpatient (CLI) | payer MEDICARE, MEDICAID | END | disposition home or self-care (01) | LOC: LAB 13:52 | PROVIDERS: ATTEND Nurse Practitioner Family | DX: Z20.822 Contact with and (suspected) exposure to COVID-19 (principal) | CPT/HCPCS: 36415 ==

== ENCOUNTER → 2021-11-19 | Outpatient (CLI) | payer MEDICARE, MEDICAID ==
[~2021-11-19] MED LIST changes: +ALBUTEROL SULF 2.5 MG/0.5ML(0.5%) NEB SOLN ONE
== END | disposition home or self-care (01) ==
LOC: RT 10-27 13:23
PROVIDERS: ATTEND Internal Medicine Pulmonary Disease
DX: J44.9 Chronic obstructive pulmonary disease, unspecified (principal)
CPT/HCPCS: 94060; 94727; 94729

== ENCOUNTER → 2022-02-01 | Outpatient (CLI) | payer MEDICARE, MEDICAID ==
[~2022-02-01] MED LIST changes: -ALBUTEROL SULF 2.5 MG/0.5ML(0.5%) NEB SOLN ONE
[2022-02-01 09:52] LABS: Basophils # (auto) 0.1 10 ^3/uL (0-0.2); Basophils % (auto) 0.8 % (0.0-2.0); Eosinophils # (auto) 0.1 10 ^3/uL (0-0.8); Monocytes # (auto) 0.4 10 ^3/uL (0-1.3); Neutrophils # (auto) 4.3 10 ^3/uL (1.6-8.6); Nucleated Red Blood Cells % 0.1 %
[2022-02-01 09:54] LABS: Eosinophils % (auto) 1.7 % (0.0-7.0); Hematocrit 31.4 % (41.0-53.0); Hemoglobin 10.7 g/dL (13.5-17.5); Lymphocytes # (auto) 2.1 10 ^3/uL (0.4-5.4); Lymphocytes % (auto) 30.3 % (10.0-50.0); Mean Corpuscular Hgb Conc. 34.2 g/dL (32.0-36.0); Mean Corpuscular Volume 102.3 fL (80.0-100.0); Monocytes % (auto) 5.2 % (0.0-12.0); Red Blood Cells 3.07 10^6/uL (4.5-5.90); Red Cell Distribution Width 15.5 % (11.8-14.3)
[2022-02-01 10:39] LABS: Albumin 3.3 g/dL (3.4-5.0); Potassium 4.6 mmol/L (3.5-5.1)
[2022-02-01 10:42] LABS: % Iron Saturation 22.8 % (20-55)
[2022-02-01 10:44] LABS: BUN/Creatinine Ratio 15.8; Bilirubin, Total 1.1 mg/dL (0.2-1.0); Total Protein 6.2 g/dL (6.4-8.2)
== END | disposition home or self-care (01) ==
LOC: LAB 09:31
PROVIDERS: ATTEND Internal Medicine
DX: E11.9 Type 2 diabetes mellitus without complications (principal); I10 Essential (primary) hypertension
CPT/HCPCS: 36415; 80053; 80061; 83036; 83540; 83550; 85025

== ENCOUNTER 2022-03-28 17:21 | Emergency (ER) | payer MEDICARE, MEDICAID ==
[~2022-03-28] VITALS: Ht 160 cm; Wt 62.0 kg
[2022-03-28 18:38] LABS: Hemoglobin 13.5 g/dL (13.5-17.5)
[2022-03-28 18:44] LABS: Hematocrit 39.8 % (41.0-53.0); Mean Corpuscular Hemoglobin 34.7 pg (28.0-32.0); Mean Corpuscular Volume 102.2 fL (80.0-100.0); Red Blood Cells 3.89 10^6/uL (4.5-5.90); White Blood Cell 10.4 10^3/uL (4.4-10.8)
[2022-03-28 18:50] LABS: Albumin 3.1 g/dL (3.4-5.0); Amylase 43 U/L (25-115); Anion Gap 11 (5-15); Basophils % (manual) 0 (0.0-2.0); Blast Cells 0; Blood Urea Nitrogen 21 mg/dL (7-18); Calcium 8.9 mg/dL (8.5-10.1); Carbon Dioxide 23 mmol/L (21-32); Chloride 104 mmol/L (98-107); Eosinophils % (manual) 0 (0-7); Glucose 203 mg/dL (74-106); Lipase 141 U/L (73-393); Magnesium 1.7 mg/dL (1.6-2.6); Myelocytes % 0; Promyelocytes % 0; Reactive Lymphocytes 0; Sodium 138 mmol/L (136-145)
[2022-03-28 18:52] LABS: Alanine Aminotransferase 54 U/L (16-61); Aspartate Aminotransferase 22 U/L (15-37); BUN/Creatinine Ratio 15.2; GFR African American 64 mL/min; GFR Non-African American 53 mL/min
[2022-03-28 18:55] LABS: Alkaline Phosphatase 85 U/L (45-117); Bilirubin, Total 1.2 mg/dL (0.2-1.0); Total Protein 6.7 g/dL (6.4-8.2)
[2022-03-28 20:54] LABS: Band Neutrophils % (manual) 4; Lymphocytes % (manual) 16 (10.0-50.0); Metamyelocytes % 1; Monocytes % (manual) 10 (0-12)
[2022-03-28 23:56] LABS: Urine Bacteria NONE SEEN /hpf (None Seen); Urine Blood Negative /uL (Negative); Urine Hyaline Cast MOD /lpf (0 - 2); Urine Mucus MODERATE (None Seen); Urine Specific Gravity 1.031 (1.001-1.035); Urine WBC 5 /hpf (0 - 3)
[2022-03-29 00:21] VITALS: BP 123/70
== END 2022-03-29 00:27 | disposition home or self-care (01) ==
LOC: ER 17:21
DX: R10.84 Generalized abdominal pain (principal); J44.9 Chronic obstructive pulmonary disease, unspecified; E11.9 Type 2 diabetes mellitus without complications; I10 Essential (primary) hypertension; Z86.73 Personal history of transient ischemic attack (TIA), and cerebral infarction without residual deficits; Z96.89 Presence of other specified functional implants
CPT/HCPCS: 36415; 74176; 80053; 81001; 82150; 83690; 83735; 85007; 85027; 99284; J7030

== ENCOUNTER 2022-03-29 04:38 | Emergency (ER) | payer MEDICARE, MEDICAID ==
[~2022-03-29] VITALS: Ht 170.2 cm; Wt 68.2 kg
[2022-03-29 04:45] VITALS: BP 140/71
[2022-03-29 06:01] LABS: Red Cell Distribution Width 14.5 % (11.8-14.3)
[2022-03-29 06:04] LABS: Hematocrit 33.4 % (41.0-53.0); Hemoglobin 11.3 g/dL (13.5-17.5); Mean Corpuscular Hemoglobin 34.4 pg (28.0-32.0); Mean Corpuscular Hgb Conc. 33.8 g/dL (32.0-36.0); Mean Corpuscular Volume 101.9 fL (80.0-100.0); Red Blood Cells 3.28 10^6/uL (4.5-5.90); White Blood Cell 9.2 10^3/uL (4.4-10.8)
[2022-03-29 06:21] LABS: Calcium 8.6 mg/dL (8.5-10.1); Potassium 4.1 mmol/L (3.5-5.1)
[2022-03-29 06:22] LABS: Basophils % (manual) 0 (0.0-2.0); Blast Cells 0; Metamyelocytes % 0; Myelocytes % 0; Promyelocytes % 0; Reactive Lymphocytes 0
[2022-03-29 06:26] LABS: BUN/Creatinine Ratio 23.2; Bilirubin, Total 1.3 mg/dL (0.2-1.0); Total Protein 6.2 g/dL (6.4-8.2)
[2022-03-29 07:28] LABS: Band Neutrophils % (manual) 6; Eosinophils % (manual) 1 (0-7); Lymphocytes % (manual) 19 (10.0-50.0); Monocytes % (manual) 11 (0-12)
[2022-03-29] MEDS ORDERED: ACETAMINOPHEN 325 MG TAB PO ONE (08:30)
== END 2022-03-29 12:19 | disposition left against medical advice (07) ==
LOC: ER 04:38 → EDBD 04:38 → ER 12:19
DX: R10.11 Right upper quadrant pain (principal); R41.82 Altered mental status, unspecified; G89.18 Other acute postprocedural pain; J44.9 Chronic obstructive pulmonary disease, unspecified; E11.9 Type 2 diabetes mellitus without complications; I10 Essential (primary) hypertension; Z86.73 Personal history of transient ischemic attack (TIA), and cerebral infarction without residual deficits; Z96.89 Presence of other specified functional implants
CPT/HCPCS: 36415; 80053; 83690; 85007; 85027; 93005

== ENCOUNTER → 2022-04-12 | Outpatient (CLI) | payer MEDICARE, MEDICAID ==
[2022-04-12 15:19] LABS: Basophils # (auto) 0.1 10 ^3/uL (0-0.2); Eosinophils # (auto) 0.1 10 ^3/uL (0-0.8); Lymphocytes # (auto) 2.3 10 ^3/uL (0.4-5.4); Monocytes # (auto) 1.1 10 ^3/uL (0-1.3); Monocytes % (auto) 10.7 % (0.0-12.0); Nucleated Red Blood Cells % 0.1 %
[2022-04-12 15:20] LABS: Basophils % (auto) 0.8 % (0.0-2.0); Eosinophils % (auto) 0.7 % (0.0-7.0); Hematocrit 37.6 % (41.0-53.0); Hemoglobin 13.3 g/dL (13.5-17.5); Lymphocytes % (auto) 22.2 % (10.0-50.0); Mean Corpuscular Hemoglobin 35.6 pg (28.0-32.0); Mean Corpuscular Hgb Conc. 35.3 g/dL (32.0-36.0); Mean Corpuscular Volume 100.8 fL (80.0-100.0); Neutrophils # (auto) 6.8 10 ^3/uL (1.6-8.6); Neutrophils % (auto) 65.6 % (37.0-80.0); Red Blood Cells 3.73 10^6/uL (4.5-5.90); Red Cell Distribution Width 15.2 % (11.8-14.3); White Blood Cell 10.3 10^3/uL (4.4-10.8)
[2022-04-12 15:46] LABS: Albumin 3.3 g/dL (3.4-5.0); BUN/Creatinine Ratio 13.4; Calcium 9.1 mg/dL (8.5-10.1); Potassium 3.5 mmol/L (3.5-5.1)
[2022-04-12 15:49] LABS: Bilirubin, Total 1.3 mg/dL (0.2-1.0); Total Protein 7.2 g/dL (6.4-8.2)
== END | disposition home or self-care (01) ==
LOC: LAB 15:02
PROVIDERS: ATTEND Internal Medicine
DX: E11.9 Type 2 diabetes mellitus without complications (principal); R11.0 Nausea; Z98.890 Other specified postprocedural states
CPT/HCPCS: 36415; 80053; 85025

== ENCOUNTER → 2022-05-19 | Outpatient (CLI) | payer MEDICARE, MEDICAID ==
[2022-05-19 11:44] LABS: BUN/Creatinine Ratio 18.7 (10.0-20.0); Calcium 9.6 mg/dL (8.5-10.1); Potassium 3.8 mmol/L (3.5-5.1)
[2022-05-19 12:10] LABS: Urine Bacteria NONE SEEN /hpf (None Seen); Urine Blood Negative /uL (Negative); Urine Mucus FEW (None Seen); Urine Specific Gravity 1.023 (1.001-1.035); Urine WBC 2 /hpf (0 - 3)
== END | disposition home or self-care (01) ==
LOC: LAB 11:00
PROVIDERS: ATTEND Internal Medicine
DX: E11.9 Type 2 diabetes mellitus without complications (principal); I10 Essential (primary) hypertension
CPT/HCPCS: 36415; 80048; 81001; 83036

== ENCOUNTER 2022-06-17 01:55 | Emergency (ER) | payer MEDICARE, MEDICAID ==
[~2022-06-17] VITALS: Ht 177.8 cm; Wt 63.0 kg
[2022-06-17 02:50] VITALS: BP 118/68
[2022-06-17] MEDS ORDERED: CEPH-510 PO ×2 (03:47→04:10)
== END 2022-06-17 04:04 | disposition home or self-care (01) ==
LOC: ER 01:55
DX: S61.402A Unspecified open wound of left hand, initial encounter (principal); E11.9 Type 2 diabetes mellitus without complications; E78.5 Hyperlipidemia, unspecified; I10 Essential (primary) hypertension; W50.4XXA Accidental scratch by another person, initial encounter; Y93.89 Activity, other specified; Y92.89 Other specified places as the place of occurrence of the external cause; Y99.8 Other external cause status

== ENCOUNTER 2022-07-05 23:07 | Emergency (ER) | payer MEDICARE, MEDICAID ==
[~2022-07-05] VITALS: Ht 165.1 cm; Wt 72.7 kg
[~2022-07-05 23:07] MED LIST changes: +CEPH-510 PO
[2022-07-06 00:22] LABS: Albumin 2.2 g/dL (3.4-5.0); BUN/Creatinine Ratio 4.4 (10.0-20.0); Calcium 8.1 mg/dL (8.5-10.1); Potassium 3.5 mmol/L (3.5-5.1)
[2022-07-06 00:24] LABS: Bilirubin, Total 0.6 mg/dL (0.2-1.0); Total Protein 5.5 g/dL (6.4-8.2)
[2022-07-06 00:33] LABS: Basophils # (auto) 0 10 ^3/uL (0-0.2); Basophils % (auto) 0.5 % (0.0-2.0); Eosinophils # (auto) 0.1 10 ^3/uL (0-0.8); Eosinophils % (auto) 1.1 % (0.0-7.0); Hematocrit 22.9 % (41.0-53.0); Lymphocytes # (auto) 1.2 10 ^3/uL (0.4-5.4); Lymphocytes % (auto) 14.9 % (10.0-50.0); Mean Corpuscular Hemoglobin 33.1 pg (28.0-32.0); Mean Corpuscular Hgb Conc. 34.7 g/dL (32.0-36.0); Mean Corpuscular Volume 95.5 fL (80.0-100.0); Monocytes # (auto) 0.4 10 ^3/uL (0-1.3); Monocytes % (auto) 5.5 % (0.0-12.0); Neutrophils # (auto) 6.1 10 ^3/uL (1.6-8.6); Red Cell Distribution Width 15.8 % (11.8-14.3); White Blood Cell 7.9 10^3/uL (4.4-10.8)
[2022-07-06] MEDS ORDERED: LIDOCAINE W/ EPINEPHRINE 1% 20ML VIAL ONE (01:00)
[2022-07-06] MEDS ORDERED: LIDOCAINE W/ EPINEPHRINE 1% 20ML VIAL ID ONE (01:00)
[2022-07-06] MEDS ORDERED: PANTOPRAZOLE 80 MG in SODIUM CHL 0.9% 100 ML IV ONE (01:30)
[2022-07-06] MEDS ORDERED: cefTRIAXone 1GM/50ML D5W 50 ML IV ONE (01:30)
[2022-07-06] MEDS ORDERED: PANTOPRAZOLE 40mg/50ML NS AE 50 ML IV ONE (01:30)
[2022-07-06] MEDS ORDERED: TRANEXAMIC ACID 10 ML ONE (01:41)
[2022-07-06] MEDS ORDERED: TRANEXAMIC ACID 1,000 MG in SODIUM CHL 0.9% 100 ML IV ONE (01:45)
[2022-07-06] MEDS ORDERED: PANTOPRAZOLE 40 MG/10 ML VIAL INJ IV ONE (02:16)
[2022-07-06] MEDS ORDERED: STERILE WATER IV ONE (02:30)
[2022-07-06] MEDS ORDERED: PROTHROMBIN COMPLEX CONCENTRAT IV ONE (02:30)
[2022-07-06 03:55] VITALS: BP 109/61
[2022-07-06 04:10] VITALS: BP 106/61
== END 2022-07-06 04:11 | disposition short-term general hospital (02) ==
LOC: EDBD 23:07 → ER 23:07
DX: K62.5 Hemorrhage of anus and rectum (principal); R57.8 Other shock; I10 Essential (primary) hypertension; E11.9 Type 2 diabetes mellitus without complications; E78.5 Hyperlipidemia, unspecified; Z79.82 Long term (current) use of aspirin; Z79.899 Other long term (current) drug therapy; W19.XXXA Unspecified fall, initial encounter; Y93.89 Activity, other specified; Y92.89 Other specified places as the place of occurrence of the external cause; Y99.8 Other external cause status
CPT/HCPCS: 36415; 36430; 70450; 70486; 71045; 71250; 72125; 74176; 80053; 82962; 83880; 84484; 85025; 86850; 86900; 86901; 86920; 93005; 96365; 96367; 96368; 99285; C9113; J0696; J7168; P9016

== ENCOUNTER → 2022-11-03 | Outpatient (CLI) | payer MEDICARE, MEDICAID ==
[~2022-11-03] MED LIST changes: -LOSA-69 PO; +LOSA50TA46 PO; +MOME1AER3 INH; -MOME200A INH
[2022-11-03 14:55] LABS: Basophils # (auto) 0.1 10 ^3/uL (0-0.2); Basophils % (auto) 1.2 % (0.0-2.0); Eosinophils # (auto) 0.1 10 ^3/uL (0-0.8); Hematocrit 34.1 % (41.0-53.0); Hemoglobin 11.5 g/dL (13.5-17.5); Lymphocytes # (auto) 2.2 10 ^3/uL (0.4-5.4); Lymphocytes % (auto) 28.8 % (10.0-50.0); Mean Corpuscular Hemoglobin 32.4 pg (28.0-32.0); Mean Corpuscular Hgb Conc. 33.7 g/dL (32.0-36.0); Mean Corpuscular Volume 96.2 fL (80.0-100.0); Monocytes # (auto) 0.5 10 ^3/uL (0-1.3); Monocytes % (auto) 6.5 % (0.0-12.0); Neutrophils # (auto) 4.8 10 ^3/uL (1.6-8.6); Neutrophils % (auto) 62.5 % (37.0-80.0); Nucleated Red Blood Cells % 0.2 %; Red Blood Cells 3.55 10^6/uL (4.5-5.90); Red Cell Distribution Width 14.3 % (11.8-14.3); White Blood Cell 7.7 10^3/uL (4.4-10.8)
[2022-11-03 15:33] LABS: Alanine Aminotransferase 18 U/L (7-40); Albumin 3.8 g/dL (3.2-4.8); Alkaline Phosphatase 94 U/L (46-116); Anion Gap 7.9 (5-15); Aspartate Aminotransferase 16 U/L (13-40); BUN/Creatinine Ratio 17.8 (10.0-20.0); Blood Urea Nitrogen 18 mg/dL (9-23); Calcium 9.5 mg/dL (8.7-10.4); Carbon Dioxide 26.1 mmol/L (20-30); Chloride 107 mmol/L (98-107); Glucose 130 mg/dL (74-106); Potassium 3.9 mmol/L (3.5-5.1); Sodium 141 mmol/L (136-145)
[2022-11-03 15:34] LABS: Total Protein 6.4 g/dL (5.7-8.2)
[2022-11-06 04:06] LABS: QuantiFERON-TB Gold Plus Negative (Negative)
[2022-11-11 08:03] LABS: Hepatitis A Total Antibody Positive (Negative); Hepatitis B Core Total AB Negative (Negative); Hepatitis B Surface Antibody Positive (Negative); Hepatitis B Surface Antigen Negative (Negative)
[2022-11-11 08:04] LABS: Hepatitis C Antibody Negative (Negative)
== END | disposition home or self-care (01) ==
LOC: LAB 14:31
PROVIDERS: ATTEND Physician Assistant
DX: Z01.89 Encounter for other specified special examinations (principal); Z11.59 Encounter for screening for other viral diseases; Z79.899 Other long term (current) drug therapy; Z72.89 Other problems related to lifestyle
CPT/HCPCS: 36415; 80053; 85025; 86704; 86706; 86708; 86803; 87340

== ENCOUNTER 2022-11-14 20:19 | Emergency (ER) | payer MEDICARE, MEDICAID ==
[~2022-11-14] VITALS: Ht 170.2 cm; Wt 54.5 kg
[2022-11-14 21:55] LABS: Basophils # (auto) 0.1 10 ^3/uL (0-0.2); Basophils % (auto) 0.8 % (0.0-2.0); Eosinophils # (auto) 0.2 10 ^3/uL (0-0.8); Eosinophils % (auto) 1.3 % (0.0-7.0); Hematocrit 35.9 % (41.0-53.0); Lymphocytes # (auto) 2.1 10 ^3/uL (0.4-5.4); Lymphocytes % (auto) 18.4 % (10.0-50.0); Mean Corpuscular Hemoglobin 32.1 pg (28.0-32.0); Mean Corpuscular Hgb Conc. 33.6 g/dL (32.0-36.0); Mean Corpuscular Volume 95.8 fL (80.0-100.0); Monocytes # (auto) 0.9 10 ^3/uL (0-1.3); Monocytes % (auto) 7.5 % (0.0-12.0); Neutrophils # (auto) 8.3 10 ^3/uL (1.6-8.6); Red Blood Cells 3.75 10^6/uL (4.5-5.90); Red Cell Distribution Width 14.7 % (11.8-14.3); White Blood Cell 11.6 10^3/uL (4.4-10.8)
[2022-11-14 22:12] LABS: INR 0.98 (0.9-1.15); Partial Thromboplastin Time 28.1 SEC (24.5-34.5); Prothrombin Time 10.3 sec (9.3-11.8)
[2022-11-14 22:18] LABS: Alanine Aminotransferase 17 U/L (7-40); Albumin 4.4 g/dL (3.2-4.8); Alkaline Phosphatase 113 U/L (46-116); Anion Gap 5 (5-15); Aspartate Aminotransferase 17 U/L (13-40); BUN/Creatinine Ratio 11.1 (10.0-20.0); Bilirubin, Total 1.1 mg/dL (0.2-1.0); Blood Urea Nitrogen 14 mg/dL (9-23); Calcium 10.4 mg/dL (8.7-10.4); Carbon Dioxide 29 mmol/L (20-30); Chloride 102 mmol/L (98-107); Glucose 144 mg/dL (74-106); Magnesium 2.2 mg/dL (1.6-2.6); Potassium 4.4 mmol/L (3.5-5.1); Sodium 136 mmol/L (136-145); Total Protein 7.6 g/dL (5.7-8.2)
[2022-11-15 01:00] VITALS: BP 158/96; RESP 19; O2SAT 95
[2022-11-15] MEDS ORDERED: BACITRACIN TOP OINT 1 UD PKG TOP ONE (03:15)
[2022-11-15 04:26] VITALS: PULSE 83
== END 2022-11-15 06:32 | disposition home or self-care (01) ==
LOC: EDBD 20:19 → ER 20:19
DX: S00.81XA Abrasion of other part of head, initial encounter (principal); R22.0 Localized swelling, mass and lump, head; I10 Essential (primary) hypertension; E11.9 Type 2 diabetes mellitus without complications; E78.5 Hyperlipidemia, unspecified; J44.9 Chronic obstructive pulmonary disease, unspecified; Z98.890 Other specified postprocedural states; W01.198A Fall on same level from slipping, tripping and stumbling with subsequent striking against other object, initial encounter; Y93.89 Activity, other specified; Y92.830 Public park as the place of occurrence of the external cause; Y99.8 Other external cause status
CPT/HCPCS: 36415; 70450; 70486; 71250; 72125; 74176; 80053; 83735; 83880; 84484; 85025; 85610; 85730; 93005

== ENCOUNTER → 2023-06-01 | Outpatient (CLI) | payer MEDICARE, MEDICAID ==
[~2023-06-01] MED LIST changes: -ASPI325T4 PO; +ASPI325T6 PO; +LOSA-534 PO; -LOSA50TA46 PO
[2023-06-01 16:15] LABS: Basophils # (auto) 0.1 10 ^3/uL (0-0.2); Basophils % (auto) 0.8 % (0.0-2.0); Eosinophils # (auto) 0.1 10 ^3/uL (0-0.8); Eosinophils % (auto) 1.3 % (0.0-7.0); Hematocrit 34.9 % (41.0-53.0); Hemoglobin 11.5 g/dL (13.5-17.5); Lymphocytes # (auto) 1.9 10 ^3/uL (0.4-5.4); Mean Corpuscular Hemoglobin 32.4 pg (28.0-32.0); Monocytes # (auto) 0.4 10 ^3/uL (0-1.3); Monocytes % (auto) 5.8 % (0.0-12.0); Neutrophils # (auto) 5.1 10 ^3/uL (1.6-8.6); Neutrophils % (auto) 67.1 % (37.0-80.0); Nucleated Red Blood Cells % 0.1 %; Red Blood Cells 3.56 10^6/uL (4.5-5.90); Red Cell Distribution Width 15.3 % (11.8-14.3); White Blood Cell 7.7 10^3/uL (4.4-10.8)
[2023-06-01 16:34] LABS: Alanine Aminotransferase 19 U/L (7-40); Albumin 3.6 g/dL (3.2-4.8); Alkaline Phosphatase 129 U/L (46-116); Anion Gap 5 (5-15); Aspartate Aminotransferase 19 U/L (13-40); BUN/Creatinine Ratio 20.2 (10.0-20.0); Bilirubin, Total 0.8 mg/dL (0.2-1.0); Blood Urea Nitrogen 25 mg/dL (9-23); Calcium 10.1 mg/dL (8.7-10.4); Carbon Dioxide 29 mmol/L (20-30); Chloride 101 mmol/L (98-107); Glucose 299 mg/dL (74-106); Potassium 4.4 mmol/L (3.5-5.1); Sodium 135 mmol/L (136-145); Total Protein 6.8 g/dL (5.7-8.2)
[2023-06-01 17:10] LABS: INR 1.04 (0.9-1.15); Partial Thromboplastin Time 28.5 SEC (24.5-34.5); Prothrombin Time 10.9 sec (9.3-11.8)
== END | disposition home or self-care (01) ==
LOC: LAB 16:06
PROVIDERS: ATTEND Internal Medicine
DX: Z01.810 Encounter for preprocedural cardiovascular examination (principal); I50.9 Heart failure, unspecified
CPT/HCPCS: 36415; 80053; 85025; 85610; 85730

== ENCOUNTER → 2024-04-23 | Outpatient (CLI) | payer MEDICARE, MEDICAID | END | disposition home or self-care (01) | LOC: LAB 15:29 | PROVIDERS: ATTEND Urology | DX: N40.1 Benign prostatic hyperplasia with lower urinary tract symptoms (principal) | CPT/HCPCS: 84153 ==

== ENCOUNTER → 2024-10-29 | Day surgery (SDC) | payer MEDICARE, MEDICAID ==
[2024-10-24 14:37] LABS: Hematocrit 36.1 % (41.0-53.0); Hemoglobin 12.1 g/dL (13.5-17.5); Mean Corpuscular Hemoglobin 32.8 pg (28.0-32.0); Mean Corpuscular Volume 98.2 fL (80.0-100.0); Nucleated Red Blood Cells % 0.0 %
[2024-10-24 14:52] LABS: INR 0.98 (0.9-1.15); Partial Thromboplastin Time 29.4 SEC (24.5-34.5); Prothrombin Time 10.4 sec (9.3-11.8)
[2024-10-24 15:26] LABS: Alanine Aminotransferase 20 U/L (7-40); Albumin 4.2 g/dL (3.2-4.8); Alkaline Phosphatase 78 U/L (46-116); Anion Gap 8 (5-15); BUN/Creatinine Ratio 18.5 (10.0-20.0); Bilirubin, Total 0.8 mg/dL (0.2-1.0); Calcium 9.3 mg/dL (8.7-10.4); Carbon Dioxide 25 mmol/L (20-31); Chloride 105 mmol/L (98-107); Glucose 94 mg/dL (74-106); Potassium 4.2 mmol/L (3.5-5.1); Sodium 138 mmol/L (136-145); Total Protein 7.3 g/dL (5.7-8.2)
[2024-10-24 15:40] LABS: Blood Urea Nitrogen 28 mg/dL (9-23)
[2024-10-25 12:28] LABS: Urine Protein, UAD Negative (Negative)
[~2024-10-29] VITALS: Ht 170.2 cm; Wt 56.7 kg
[~2024-10-29] MED LIST changes: +ACCU-CHEK COMFORT CURVE STRIP VI ONE; -ALLO300T2 PO; +ASPI-498 OR; -ASPI325T6 PO; -CEPH-510 PO; +EMPA1TAB3 PO; +FINA5TAB4 PO; -FLUO0.05 EX; +GABA-1308 PO; -ISOS1TAB28 PO; -KETO2CRE4 TOP; -KRIL300C2 PO; -LOSA-534 PO; +MEMA1TAB5 PO; -METF-372 PO; +METF-489 PO; +METO-6 PO; -METO25TA93 PO; +MIDAZOLAM HCL 2MG/2ML 2ml VIAL (1mg/ml) IV PRN; +MIDAZOLAM HCL 2MG/2ML 2ml VIAL (1mg/ml) ONE; -MOME1AER3 INH; +MORPHINE SULFATE 4 MG/ML SYR/VIAL IV PRN; -MULTCHW3 OR; -OMEG306C OR; +ONDANSETRON HCL 4 MG/2 ML VIAL IV PRN; +PIOG1TAB36 OR; +PROPOFOL 10 MG/ML 20 ML IV ONE; -RANO500T2 PO; +RANO500T3 PO; -TERA5CAP42 PO; -UMEC1AER IN; +fentaNYL CITRATE 100 MCG/2 ML VL ONE; +hydrALAZINE HCL 20 MG/ML VL IV PRN
[2024-10-29] MEDS: CIPROFLOXACIN 400MG/200ML 200 ML IV ONE (13:34)
[2024-10-29 14:15] VITALS: PULSE 59; RESP 14; TEMP 97.4; O2SAT 100
--- NOTE | 2024-10-29 14:19 | DVHNC2 ---
Procedure - OPERATIVE REPORT Pre-op. Diagnosis: BPH with Obstruction Post-op. Diagnosis: Same as pre-op diagnosis Operation: Urolift - Prostate Implant Anesthesia: General Indications: Patient suffers from obstructive voiding dysfunction. Treatment options were discussed including ongoing therapy with pharmaceutical such as alpha blocking agents (Flomax/UroXatral/Rapaflow), or Prostate shrinking agents (proscar/Avodart); In-office prostate therapies (TUMT/Indigo Laser/TUNA); or Outpatient procedures such as Green light laser photovaporization/Enucleation/TURP) as well urolift. Corresponding advantages and disadvantages were also discussed. Questions were addressed. Complication include but nt limited to infection, bleeding, damage to the surrounding structures, ejaculatory dysfunction, erectile dysfunction, need for secondary procedures were discussed. Informed consent was obtained. Details of Procedure: Patient was brought to the operating room. After administration of anesthesia, he was placed in the lithotomy position. The area of genitalia was prepped and draped in standard surgical and sterile fashion. The 20 F access sheath was introduced into the bladder under direct vision. Bladder was emptied and the Urolift device was introduced. Five implants were permanently placed at the 10 a& 2 O'clock positions near the bladder neck and apical tissue to lift the kissing lateral lobes out of the way and to create a channel in the prostatic urethra and the urethral bladder neck opening. The implants were delivered through a needle that comes out of the Urolift delivery device and into the prostate. Patient tolerated the procedure well. He was awaken and taken to RR in stable condition. All instrument counts were correct at the end of the procedure. Specimens: None Complications: None Findings: Notes: Diagnosis: Visit Code: Procedure Codes: 08455 CYSTOURETHRO W/IMPLANT. 71887 CYSTOURETHRO W/ADDL IMPLANT. Units: 4.00. GEORGE SCHMID MD Oct 29, 2024 14:19
--- NOTE | 2024-10-29 14:20 | DVHDS2 ---
New Physician D'charge PN Admitting Diagnosis Admitting Diagnosis BPH Discharge Diagnosis Same Operations or Procedures UroLift prostate implants Reason(s) For Hospitalization Surgery Treatment Plan Discharge Condition of Discharge Fair Disposition Home Discharge Instructions Diet: Regular Activity: Light activity Activity comment: As tolerated Medications: Given Follow Up Care Follow Up/Referral: Follow up two weeks Discharge Statement: "Patient was advised to return to the ER or call 911 if any headaches, dizziness, shortness of breath, chest pain, abdominal pain, bleeding, fevers, or worsening of medical condition. Patient was counseled about treatment plan, medications, possible side effects, patientverbalized understanding. All questions were answered to the best of my ability. This discharge took greater then 30 minutes in planning, reviewing documentation, counseling the patient, and discussing with other team members." GEORGE SCHMID MD Oct 29, 2024 14:20
[2024-10-29 14:30] VITALS: PULSE 63; RESP 12; O2SAT 100
[2024-10-29] MEDS: HYDROmorphone HCL 2 MG/ML VL/or syr IV PRN (14:50)
[2024-10-29 15:30] VITALS: BP 156/78; PULSE 58; RESP 12; O2SAT 96
== END | disposition home or self-care (01) ==
LOC: SUR 09:26
PROVIDERS: ATTEND Urology
DX: N40.1 Benign prostatic hyperplasia with lower urinary tract symptoms (principal); N13.8 Other obstructive and reflux uropathy; E11.22 Type 2 diabetes mellitus with diabetic chronic kidney disease; I12.9 Hypertensive chronic kidney disease with stage 1 through stage 4 chronic kidney disease, or unspecified chronic kidney disease; N18.9 Chronic kidney disease, unspecified; J44.9 Chronic obstructive pulmonary disease, unspecified; I25.10 Atherosclerotic heart disease of native coronary artery without angina pectoris; K21.9 Gastro-esophageal reflux disease without esophagitis; Z86.73 Personal history of transient ischemic attack (TIA), and cerebral infarction without residual deficits; Z79.899 Other long term (current) drug therapy; Z98.890 Other specified postprocedural states
CPT/HCPCS: 36415; 80053; 81001; 82962; 85025; 85610; 85730; 87086; 87088; 87186; A4315; C9740; J0744; J1100; J1171; J2250; J2704; J3010; J7030; L8699